=== PATIENT | male | born 1985 ===

== ENCOUNTER 2020-06-06 11:00 | Outpatient (CLI) | payer OTHER, SELFPAY ==
[2020-06-06 11:48] LABS: Hematocrit 45.3 % (42.0-52.0); Hemoglobin 15.7 g/dL (14.0-18.0); Mean Corpuscular HGB Conc 34.7 g/dl (32-36); Mean Corpuscular Hemoglobin 31.4 pg (26-34); Mean Corpuscular Volume 90.6 fl (80-100); Mean Platelet Volume 9.6 fl (7.4-10.4); Platelet Count Result 219 k/mm3 (150-375); Red Cell Distribution Width 12.6 % (11.5-14.5); White Blood Count 7.5 K/mm3 (4.5-10.0)
[2020-06-06 11:59] LABS: Alanine Aminotransferase 44 U/L (4-50); Albumin Level 4.2 g/dL (3.5-5.1); Alkaline Phosphatase 48 U/L (38-126); Anion Gap 5 mmol/L (8-16); Aspartate Amino Transferase 29 U/L (17-59); Bilirubin,Total 0.5 mg/dL (0.2-1.3); Blood Urea Nitrogen 17 mg/dL (9-20); Calcium 9.2 mg/dL (8.4-10.2); Carbon Dioxide 27 mmol/L (22-30); Chloride 109 mmol/L (98-107); Cholesterol 168 mg/dL (0-200); Estimated Glomerular Filt Rate > 60; Glucose 102 mg/dL (75-110); HDL Direct 34 mg/dL; Sodium 141 mmol/L (137-145); Triglycerides 102 mg/dL (<150)
[2020-06-06 12:10] LABS: LDL Cholesterol Direct 116 mg/dL
== END 2020-06-06 11:01 | disposition home or self-care (01) ==
LOC: ANHLAB 11:03
PROVIDERS: PCP Family Medicine; Visit Provider Nurse Practitioner Family
DX: Z00.00 Encounter for general adult medical examination without abnormal findings (principal); E03.9 Hypothyroidism, unspecified; Z13.220 Encounter for screening for lipoid disorders
CPT/HCPCS: 36415; 80053; 80061; 84443; 85027

== ENCOUNTER → 2020-11-11 08:57 | Outpatient (CLI) | payer OTHER, SELFPAY ==
[2020-11-11 19:54] LABS: SARS-CoV-2 RNA PCR Negative
== END ==
PROVIDERS: PCP Family Medicine; Visit Provider Nurse Practitioner Family
DX: R05 Cough (principal); Z20.822 Contact with and (suspected) exposure to COVID-19
CPT/HCPCS: C9803; U0003; U0005